=== PATIENT | male | born 1955 | race American Indian/Alaskan Native ===

== ENCOUNTER 2020-07-13 21:20 | Emergency (ER) | payer MEDICARE ==
[2020-07-13] MEDS ORDERED: ACETAMINOPHEN 325 MG TAB ONE (23:22)
[2020-07-13] MEDS ORDERED: ACETAMINOPHEN 325 MG TAB PO ONE (23:28)
[2020-07-14 00:03] LABS: Basophils % (Auto) 0.3 % (0.0-1.8); Eosinophils # (Auto) 0.1 K/mm3 (0.0-0.4); Eosinophils % (Auto) 1.2 % (0.0-4.3); Hematocrit 29.5 % (35.5-45.6); Hemoglobin 10.1 gm/dl (11.8-15.2); Lymphocytes % (Auto) 44.7 % (13.4-35.0); Mean Corpuscular HGB Conc 34 % (32-34); Mean Corpuscular Volume 100 fl (84-94); Monocytes # (Auto) 0.4 K/mm3 (0.0-0.8); Monocytes % (Auto) 8.6 % (0.0-7.3); Platelet Count 243 K/mm3 (140-440); Red Blood Count 2.97 M/mm3 (3.65-5.03); Red Cell Distribution Width 15.2 % (13.2-15.2)
[2020-07-14 00:17] LABS: Alanine Aminotransferase 119 units/L (7-56); Albumin 3.9 g/dL (3.9-5); BUN/Creatinine Ratio 14; Blood Urea Nitrogen 15 mg/dL (9-20); Hemolysis Index 3
[2020-07-14] MEDS ORDERED: ONDANSETRON 4 MG/2 ML INJ IV ONE (01:43)
[2020-07-14] MEDS ORDERED: SODIUM CHLORIDE 0.9% 1000 ML 1,000 ML IV ONE (01:43)
[2020-07-14] MEDS ORDERED: MORPHINE 2 MG/1 ML INJ IV ONE (01:43)
[2020-07-14 02:43] LABS: Bilirubin,Urine NEG (Negative); Blood,Urine NEG (Negative); Color,Urine Yellow (Yellow); Mucus,Urine FEW /HPF; RBC,Urine < 1.0 /HPF (0.0-6.0)
--- NOTE | 2020-07-14 03:18 | Cat Scan Report ---
CT ABDOMEN AND PELVIS WITH CONTRAST INDICATION: abd pain CONTRAST: 100 cc Omnipaque 300 IV COMPARISON: None available. All CT scans at this location are performed using CT dose reduction for ALARA by means of automated e xposure control. FINDINGS: In the lateral segment of the right middle lobe a 5 mm peripheral nodule is seen without ca lcification. No significant basilar infiltrates are seen with only mild probable scarring noted. No pneumoperitoneum is noted. No free fluid is seen. No lymphadenopathy is noted. Prominent fatty inf iltration of the liver is seen without obvious focal lesion. The liver is enlarged and has a length o f 21.4 cm. Spleen appears within normal limits. I see no abnormalities of the gallbladder, bile ducts , pancreas, or adrenals. Bilateral small probable renal cysts are seen. No urinary obstructive change s or obvious calculi are noted. Appendix appears within normal limits. No evidence of bowel obstructi on is seen. Mild colonic diverticulosis is noted without obvious acute diverticulitis slight haziness in the central mesenteric fat is nonspecific. I do not see significant mesenteric adenopathy. No bow el wall thickening is seen. IMPRESSION: 1. No acute abnormalities are seen. 2. Prominent fatty infiltration of the liver with moderate hepatomegaly Signer Name: Juno Orellana MD Signed: 07/14/2020 3:14 AM Workstation Name: [id number]
--- NOTE | 2020-07-14 03:32 | Emergency Department Report ---
ED Abdominal Pain HPI - General Chief Complaint: Abdominal Pain Stated Complaint: ABDOMINAL PAIN Time Seen by Provider: 07/14/20 01:42 Source: patient Mode of arrival: Ambulatory Limitations: No Limitations - History of Present Illness Initial Comments: 65-year-old male presents to ED with complaint of abdominal pain x1 month. Patient states he has had this pain before, states it was due to his pancreas. Patient reports he drinks alcohol approximately 3 times a week. Patient reports associated nausea and vomiting with this pain. He denies any fever. MD Complaint: abdominal pain -: month(s) (1) Location: periumbilical Radiation: none Migration to: no migration Severity: moderate Severity scale (0 -10): 4 Quality: aching Consistency: intermittent Improves With: nothing Worsens With: other (Alcohol use) Associated Symptoms: nausea, vomiting. denies: diarrhea, fever - Related Data Previous Rx's Medication Instructions Recorded Last Taken Type Dicyclomine [Bentyl] 20 mg PO QID PRN #20 tablet 07/14/20 Unknown Rx Ondansetron [Zofran Odt] 4 mg PO Q8HR PRN #20 tab.rapdis 07/14/20 Unknown Rx Allergies Allergy/AdvReac Type Severity Reaction Status Date / Time No Known Allergies Allergy Unverified 07/13/20 22:29 ED Review of Systems ROS: Stated complaint: ABDOMINAL PAIN Other details as noted in HPI Comment: All other systems reviewed and negative Constitutional: denies: chills, fever Gastrointestinal: abdominal pain, nausea, vomiting. denies: diarrhea ED Past Medical Hx - Past Medical History Previous Medical History?: Yes Hx Hypertension: Yes Hx Diabetes: Yes Additional medical history: pancreatitis - Surgical History Past Surgical History?: No - Social History Smoking Status: Never Smoker Substance Use Type: None - Medications Home Medications: Home Medications Medication Instructions Recorded Confirmed Last Taken Type Dicyclomine [Bentyl] 20 mg PO QID PRN #20 tablet 07/14/20 Unknown Rx Ondansetron [Zofran Odt] 4 mg PO Q8HR PRN #20 tab.rapdis 07/14/20 Unknown Rx ED Physical Exam - General Limitations: No Limitations General appearance: alert, in no apparent distress - Head Head exam: Present: atraumatic, normocephalic - Eye Eye exam: Present: normal appearance, EOMI - ENT ENT exam: Present: mucous membranes moist - Neck Neck exam: Present: normal inspection - Respiratory Respiratory exam: Present: normal lung sounds bilaterally. Absent: respiratory distress - Cardiovascular Cardiovascular Exam: Present: normal rhythm, tachycardia - GI/Abdominal GI/Abdominal exam: Present: soft, tenderness. Absent: distended - Extremities Exam Extremities exam: Present: normal inspection - Neurological Exam Neurological exam: Present: alert, oriented X3 - Psychiatric Psychiatric exam: Present: normal affect, normal mood - Skin Skin exam: Present: warm, dry, intact, normal color ED Course Vital Signs 07/13/20 22:13 Temperature 97.4 F L Pulse Rate 116 H Respiratory 20 Rate Blood Pressure 164/108 O2 Sat by Pulse 96 Oximetry ED Medical Decision Making - Lab Data Result diagrams: 07/13/20 23:06 07/13/20 23:06 Critical care attestation.: If time is entered above; I have spent that time in minutes in the direct care of this critically ill patient, excluding procedure time. ED Disposition Clinical Impression: Abdominal pain, Nausea and vomiting, Elevated liver enzymes Disposition: -01 TO HOME OR SELFCARE Is pt being admited?: No Condition: Stable Instructions: Nausea and Vomiting, Adult, Abdominal Pain, Adult, [id number] Referrals: PRIMARY CARE,MD [Primary Care Provider] - 3-5 Days [facility] [Provider Group] - 3-5 Days Time of Disposition: 03:32
[2020-07-14 03:46] VITALS: BP 113/66
== END 2020-07-14 03:44 | disposition home or self-care (01) ==
LOC: ED 21:20
DX: R10.33 Periumbilical pain (principal); R11.2 Nausea with vomiting, unspecified; R94.5 Abnormal results of liver function studies; I10 Essential (primary) hypertension; E11.9 Type 2 diabetes mellitus without complications; Z79.899 Other long term (current) drug therapy
CPT/HCPCS: 36415; 74177; 80053; 81001; 83690; 85025; 96361; 96374; 96375; 99284; J2270; J2405; J7030; Q9967